=== PATIENT | female | born 1965 | race Caucasian/White ===

== ENCOUNTER → 2016-07-09 | Outpatient (CLI) | payer BC | LOC: RAD 07:21 | PROVIDERS: ATTEND Family Medicine | DX: Z12.31 Encounter for screening mammogram for malignant neoplasm of breast (principal) ==

== ENCOUNTER 2016-09-11 07:55 | Day surgery (SDC) | payer BC ==
[~2016-09-11] VITALS: Ht 172.7 cm; Wt 75.0 kg
[~2016-09-11 07:55] MED LIST: AML5T PO; ATOR10TA PO; CARV25TA30 PO; FRSM40T PO; LACTATED RINGERS 1,000 ML IV SCH; MULT-954 PO; NF-LISIN40 PO; POTA99TA7 PO; SODIUM CHLORIDE FLUSH 3 ML SYR IV PRN; VIT1CAPS22 PO
--- OUTSIDE RECORDS SUMMARY | 2016-09-11 08:00 | XMS REPORT | Continuity of Care Document ---
Author Author [facility] Address Unknown Phone Unavailable Allergies Medications Problems Date Dx Coded Attending Type Code Diagnosis Diagnosed By 03/05/2016 Mary BERMUDEZ, Zander Ji Ot V76.12 OTH SCREEN MAMMO-MALIGN NEOPLASM OF LILLI 07/02/2016 Zander Hernandez MD Ot V76.12 OTH SCREEN MAMMO-MALIGN NEOPLASM OF LILLI 07/07/2016 Mary BERMUDEZ, Zander Ji Ot V76.12 OTH SCREEN MAMMO-MALIGN NEOPLASM OF LILLI 07/09/2016 Zander Hernandez MD Ot V76.12 OTH SCREEN MAMMO-MALIGN NEOPLASM OF LILLI 07/09/2016 Zander Hernandez MD Ot V76.12 OTH SCREEN MAMMO-MALIGN NEOPLASM OF LILLI 07/10/2016 Zander Hernandez MD Ot V76.12 OTH SCREEN MAMMO-MALIGN NEOPLASM OF LILLI 07/15/2016 Zander Hernandez MD Ot Z12.31 ENCNTR SCREEN MAMMOGRAM FOR MALIGNANT NE 07/24/2016 Zander Hernandez MD, Ot Z12.31 ENCNTR SCREEN MAMMOGRAM FOR MALIGNANT NE Procedures Results Encounters ACCT No. Visit Date/Time Discharge Status Pt. Type Provider Facility Loc./Unit Complaint [id number] 05/29/2014 07:19:00 2014 23:59:59 CLS Outpatient Zander Hernandez MD [facility] RAD [id number] 07/09/2016 07:21:00 ACT Outpatient Mary BERMUDEZ [facility] RAD MAMMO SCREENING - Z12.31
[2016-09-11 08:04] VITALS: BP 157/106
[2016-09-11] MEDS ORDERED: ALFENTANIL 500 MCG/ML (ALFENTA) 5 ML AMP IV ONE (08:21)
[2016-09-11] MEDS ORDERED: MIDAZOLAM 2 MG/2 ML (VERSED) VIAL ONE (08:21)
[2016-09-11] MEDS ORDERED: PROPOFOL 20 ML IV ONE (08:21)
[2016-09-11 09:46] VITALS: BP 134/97
[2016-09-11 10:15] VITALS: BP 151/96
--- NOTE | 2016-09-11 10:27 | OPERATIVE REPORT ---
DATE OF OPERATION: 09/11/2016 PRE-OPERATIVE DIAGNOSIS: Screening colonoscopy POST-OPERATIVE DIAGNOSIS: 1. Small colon polyp. 2. Sigmoid diverticulosis. OPERATIVE PROCEDURE: Total colonoscopy with polypectomy (cautery forceps) SURGEON: Allen Eller MD ANESTHESIA: Monitored anesthesia care FINDINGS: 1. The bowel prep was good. 2. A small, flat polyp was noted at 25 cm in the sigmoid colon. This was removed using the cautery forceps. It was too flat to snare. Pathology is pending. 3. There were numerous diverticula seen in the sigmoid colon. 4. No inflammation or angiodysplasia were seen. INDICATIONS: The patient is a 50-year-old referred by Dr. Hernandez for colonoscopy screening. She hasn't had any bowel habit changes and her family history is negative for colorectal cancer. DESCRIPTION OF PROCEDURE: The patient was informed of the risks and benefits and agreed to proceed. She was placed in the left lateral decubitus position and administered IV sedation. When properly sedated a rectal exam was performed, which was normal. The lighted endoscope was passed into the rectum and advanced along the colon to the cecum. The ileocecal valve and appendiceal orifice were easily seen. The scope was slowly brought back through the ascending, transverse, descending and sigmoid colon. This small polyp was noted and removed. Initially I tried to use the saline-lift technique, but it was too flat to get the snare around it, so cautery forceps was used to take it piecemeal. It was completely removed. No other polyps were seen in the sigmoid colon, but there were diverticula noted there. The rectum appeared normal on regular view and retroflexion. The scope was removed completing the procedure. The patient tolerated the procedure without complications. Pathology is pending.
[2016-09-11 10:30] VITALS: BP 140/84
[2016-09-11 10:51] VITALS: BP 142/102
== END 2016-09-11 10:53 ==
LOC: ASC 07:55
PROVIDERS: ATTEND Surgery
DX: K63.5 Polyp of colon (principal); K57.30 Diverticulosis of large intestine without perforation or abscess without bleeding; I10 Essential (primary) hypertension; E78.5 Hyperlipidemia, unspecified; Z79.899 Other long term (current) drug therapy
CPT/HCPCS: 36415; 45384; 84132; J2250; J7120